=== PATIENT | female | born 2000 | race Caucasian/White ===

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

== ENCOUNTER 2022-07-04 16:44 | Emergency (ER) | payer OTHER ==
[2022-07-04] MEDS ORDERED: Lidocaine 2% with EPINEPHrine 1:100,000 20 ML MDV INFILT ONE (16:45)
[2022-07-04] MEDS ORDERED: Bacitracin Oint 1 GM U/D Packet TOP ONE (17:20)
[2022-07-04] MEDS ORDERED: Ketorolac 30 MG/ML SDV IM ONE (17:20)
== END 2022-07-04 17:58 | disposition home or self-care (01) ==
LOC: FB.ED 16:44
DX: S06.0X0A Concussion without loss of consciousness, initial encounter (principal); S01.01XA Laceration without foreign body of scalp, initial encounter; E03.9 Hypothyroidism, unspecified; E66.9 Obesity, unspecified; Z68.42 Body mass index [BMI] 45.0-49.9, adult; Z79.899 Other long term (current) drug therapy; Z88.8 Allergy status to other drugs, medicaments and biological substances; W20.8XXA Other cause of strike by thrown, projected or falling object, initial encounter
CPT/HCPCS: 12001; 96372; 99281; 99283; J1885